=== PATIENT | male | born 1955 | race American Indian/Alaskan Native ===

== ENCOUNTER 2018-12-11 11:14 | Day surgery (SDC) | payer MEDICARE ==
--- NOTE | 2018-12-09 11:53 | Anesthesia Consultation ---
Anesthesia Consult and Med Hx Date of service: 12/11/18 - Airway Anesthetic Teeth Evaluation: Good ROM Head & Neck: Inadequate (ACDF) Mental/Hyoid Distance: Adequate Mallampati Class: Class III Intubation Access Assessment: Difficult - Pre-Operative Health Status ASA Pre-Surgery Classification: ASA3 Proposed Anesthetic Plan: General - Pulmonary Hx Smoking: No Hx Sleep Apnea: No (TIO PRE SCREEN HIGH RISK.) - Cardiovascular System Hx Hypertension: Yes (X 4 YRS) Hx Coronary Artery Disease: Yes (Stents 2014; heart cath 04/2018-ok) Hx Percutaneous Transluminal Coronary Angioplasty (PTCA): Yes (2015) - Central Nervous System Hx Back Pain: Yes (NECK PAIN-CHRONIC) Hx Psychiatric Problems: Yes (Anxiety/Depression) - Endocrine Hx Insulin Dependent Diabetes: Yes Hx Thyroid Disease: No (HyperPARAthyroid) - Other Systems Hx Cancer: No
[2018-12-11] MEDS ORDERED: NACL 0.9% 1000 ML 1,000 ML IV SCH (12:05)
[2018-12-11] MEDS ORDERED: ZOFRAN IV PRN (12:58)
[2018-12-11] MEDS ORDERED: SUBLIMAZE IV PRN (12:58)
--- NOTE | 2018-12-11 12:58 | Anesthesia Day of Surgery ---
Anesthesia Day of Surgery - Day of Surgery Patient Examined: Yes (Pt fell and his sacrum is hurting) Patient H&P Reviewed: Yes Patient is NPO: Yes
[2018-12-11] MEDS ORDERED: LEVAQUIN 500MG/100ML 500 MG/100 ML BAG IV NR (13:00)
[2018-12-11] MEDS ORDERED: SUBLIMAZE ONE (13:59)
[2018-12-11] MEDS ORDERED: XYLOCAINE MPF 2% ONE (14:00)
[2018-12-11] MEDS ORDERED: DIPRIVAN 10 MG/ML IV ONE (14:00)
[2018-12-11] MEDS ORDERED: ZOFRAN ONE (14:24)
[2018-12-11] MEDS ORDERED: OMNIPAQUE 300 MG/50 ML (CATH LAB) IV ONE (14:45)
[2018-12-11] MEDS ORDERED: NACL P/F VIAL (10 ML) 10 ML ONE (14:46)
--- NOTE | 2018-12-11 14:51 | Post Operative Note ---
Date of procedure: 12/11/18 Pre-op diagnosis: hematuria +fish Post-op diagnosis: same Findings: bph Procedure: cysto bx rpgs Anesthesia: GETA Surgeon: PERFECTO DEGROOT Estimated blood loss: minimal Pathology: list (bladder) Specimen disposition: to lab Condition: stable Disposition: PACU
--- NOTE | 2018-12-11 14:52 | Discharge Summary ---
Short Stay Discharge Plan Activity: other (no straining ) Weight Bearing Status: Full Weight Bearing Diet: low fat, low cholesterol, low salt Special Instructions: other (inc fluids ) Durable Medical Equipment Needed Upon Discharge: other (void x 2 prior to d/c ) Follow up with: ELIZABETH VILLALOBOS MD [Primary Care Provider] - 7 Days PERFECTO DEGROOT MD [Staff Physician] - 7 Days
[2018-12-11] MEDS ORDERED: LASIX ONE ×2 (14:54→14:56)
--- NOTE | 2018-12-11 15:47 | Post Anesthesia Evaluation ---
- Post Anesthesia Evaluation Patient Participated: Yes Airway Patent: Yes Stable Respiratory Function: Yes Nausea/Vomiting: No Temp > 96.8F: Yes Pain Manageable: Yes Adequeate Hydration: Yes Anesthesia Complications: No Block Receding Appropriately: Not Applicable Patient on Ventilator: No
[2018-12-11 15:52] VITALS: BP 126/74
--- NOTE | 2018-12-11 19:58 | Operative Report ---
PREOPERATIVE DIAGNOSES: Gross hematuria, positive FISH, previous cystoscopy was negative. POSTOPERATIVE DIAGNOSES: Gross hematuria, positive FISH, previous cystoscopy was negative. PROCEDURES: Cystoscopy, multiple biopsies, fulguration, retrograde. SURGEON: Dr. Jimenez. ANESTHESIA: General. FINDINGS: This is a gentleman who has had workups over the last 3 years for hematuria. Nothing was found. He had a CT scan, but more recently, the FISH test was positive. He now presents for cystoscopy. DESCRIPTION OF PROCEDURE: The patient was brought to the operating room and placed on the operating room table. Following induction of anesthesia, he was placed in lithotomy position, prepped and draped in usual sterile fashion. There was some mild prostatic enlargement and minimal varices, but a few at the bladder neck. Bladder was entered and looked like there was a small ureterocele on the right, but there was no gross hematuria. At this point, no blood from either orifice. Biopsies were obtained from right and left lateral pascual, posterior pascual, dome and prostatic urethra. The areas were fulgurated. Retrograde showed some J hooking bilaterally, good filling, good drainage, no persistent filling defects, some vascular crossings and peristalsis. The patient tolerated the procedure well and brought to recovery room in stable condition. JOB# [id number] IDANIA/IVAN
--- NOTE | 2018-12-12 14:58 | Fluoroscopy Report ---
FLUOROSCOPY RETROGRADE UROGRAPHY HISTORY: Hematuria FINDINGS: 1.5 minutes of fluoroscopy time was provided by radiology during retrograde urography by lydia nolasco urologist. 6 fluoroscopic images are presented. Contrast opacifies normal-appearing collecting syst ems bilaterally. No filling defect or abnormal dilatation is identified. IMPRESSION: Unremarkable bilateral retrograde pyelograms. Signer Name: Matt Gardiner Jr, MD Signed: 12/11/2018 3:45 PM Workstation Name: [id number]
== END 2018-12-11 16:45 | disposition home or self-care (01) ==
LOC: OR 11:14
PROVIDERS: ATTEND Urology
DX: R31.0 Gross hematuria (principal); I10 Essential (primary) hypertension; I25.10 Atherosclerotic heart disease of native coronary artery without angina pectoris; F41.9 Anxiety disorder, unspecified; F32.9 Major depressive disorder, single episode, unspecified; E11.9 Type 2 diabetes mellitus without complications; E78.00 Pure hypercholesterolemia, unspecified; N40.0 Benign prostatic hyperplasia without lower urinary tract symptoms; Z88.0 Allergy status to penicillin; Z79.84 Long term (current) use of oral hypoglycemic drugs; Z79.82 Long term (current) use of aspirin; Z79.899 Other long term (current) drug therapy; Z98.890 Other specified postprocedural states; Z95.5 Presence of coronary angioplasty implant and graft
CPT/HCPCS: 52214; 74420; 82962; 88112; 88305; 93005; 93010; C1758; J1940; J1956; J2405; J2704; J3010; J7030; Q9967